=== PATIENT | female | born 1950 ===

== ENCOUNTER 2020-12-12 06:00 | Day surgery (SDC) | payer OTHER ==
[2020-12-12] MEDS ORDERED: ULTRACET PO (09:25)
[2020-12-12] MEDS ORDERED: RECTICARE30 GM TOP (09:25)
== END 2020-12-12 10:55 | disposition home or self-care (01) ==
LOC: AMB-ENDOS 06:00
PROVIDERS: ATTEND Surgery
DX: D12.0 Benign neoplasm of cecum (principal); K64.2 Third degree hemorrhoids; Z20.822 Contact with and (suspected) exposure to COVID-19